=== PATIENT | female | born 1990 | race Caucasian/White ===

== ENCOUNTER 2021-10-01 05:05 | Inpatient (IN) | payer OTHER, SELFPAY ==
[2021-10-01] VITALS (132 sets, daily range): BP systolic 86–152; BP diastolic 45–118; PULSE 56–228; RESP 18; TEMP 36.6–37.4; O2SAT 80–100
--- NOTE | 2021-10-01 05:28 | LDADM ---
This patient, Evita Fleming, was admitted to Labor/Delivery/Recovery 103 on 10/01/21 at 05:05. Plans for labor, pain management and were discussed with patient. Patient/family oriented to hospital policies and general routines including ID bracelet, bed and alarms, visiting hours, pain management, procedures, bathroom and other care routines, personal items, smoking policy, room service/diet and guest tray routines, security routines, and visiting hours. Patient/Family are encouraged to report perceived risks to care and to ask questions if they do not understand what they are told or what they should do. See OBIX for further documentation.
[2021-10-01 05:47] LABS: Basophils Percent Auto 0.3 % (0.2-1.2); Eosinophils Absolute Auto 0.1 K/mm3 (0-0.3); Eosinophils Percent Auto 1.3 % (0-4.4); Hematocrit 38.3 % (37.0-47.0); Hemoglobin 12.9 g/dL (12.0-15.0); Immature Granulocyte Absolute 0.05 K/mm3 (0.00-0.031); Immature Granulocyte Percent A 0.5 % (0-0.5); Lymphocytes Absolute Auto 2.78 K/mm3 (0.9-3.2); Lymphocytes Percent Auto 25.4 % (18.3-44.2); Mean Corpuscular HGB Conc 33.7 g/dl (32-36); Mean Corpuscular Hemoglobin 32.2 pg (26-34); Mean Corpuscular Volume 95.5 fl (80-100); Mean Platelet Volume 10.6 fl (7.4-10.4); Monocytes Absolute Auto 0.8 K/mm3 (0.1-0.6); Monocytes Percent Auto 7.2 % (2.6-8.5); Neutrophils Absolute Auto 7.2 K/mm3 (1.3-6.7); Neutrophils Percent Auto 65.3 % (45.5-73.1); Platelet Count Result 292 k/mm3 (150-375); Red Blood Count 4.01 M/mm3 (4.2-5.4); Red Cell Distribution Width 13.2 % (11.5-14.5)
[2021-10-01] MEDS: OXYTOCIN 30 UNITS/NS 500 ML 30 UNITS/500 ML BAG 6 UNITS IV CONT (06:09)
[2021-10-01] MEDS: LACTATED RINGERS 1,000 ML 125 ML IV CONT ×2 (06:10→10:59)
[2021-10-01 06:42] LABS: Rapid Plasma Reagin Non-Reactive (NonReactive)
--- NOTE | 2021-10-01 08:47 | WPDOBADMIT ---
Obstetrics - Admit Note Admission Note: record reviewed. Additions to the history and/or subsequent changes in the physical findings follow. 31 y/o G1 at 39 4/7 weeks here for induction of labor. GBS neg. AVSS NST reactive TOCO: contractions irregularly ABD soft, nontender, gravid, vertex EXT nontender Cervix 4/80/-2. AROM with clear fluid. Vertex. A: IUP at 39 4/7 weeks, desiring induction of labor. Favorable cervix. P: Oxytocin. Anticipate .
[2021-10-01] MEDS: PHENYLEPHRINE 1,000 MCG/10 ML SYRINGE 1000 MCG (11:10)
--- NOTE | 2021-10-01 12:08 | PM.OBPNLAB ---
Pain Control Date/time seen: 10/01/21 12:08 Comments: Comfortable with epidural. AVSS NST reactive TOCO: contractions irregularly Cervix 580/-1. IUPC placed. Continue labor.
[2021-10-01] MEDS: SODIUM CHLORIDE 0.9% IV 300 ML 600 ML I-UTERINE (12:35)
[2021-10-01] MEDS: ONDANSETRON INJ 4 MG/2 ML VIAL IV PUSH (14:50)
[2021-10-01] MEDS: OXYTOCIN 30 UNITS/NS 500 ML 30 UNITS/500 ML BAG 125 UNITS IV CONT (18:45)
--- NOTE | 2021-10-01 18:46 | P.PCNOB_ITS ---
OB - Delivery Note Procedure Delivery date: 10/01/21 Procedure: Induction of labor with Excisional biopsy of Left Vulvar skin tag Induction method: Per Pitocin Protocol Delivery augmentation: Rupture of Membranes Delivery monitor: External FHT, External Uterine and Internal Uterine Route of delivery: Laceration Description: Perineal - 2nd Degree Delivery repair: vicryl (3-0) Specimen: Yes (cord blood, left vulvar skin tag) Quantitative Blood Loss (ml): 370 Anesthesia type: Epidural Disposition: PACU Narrative: 31 y/o G1 at 39 4/7 weeks gestation who presented to the hospital for induction of labor. Oxytocin was administered intravenously. Amniotomy was performed with return of clear fluid. She received an epidural for pain control. Her labor progressed and her cervix dilated completely. She pushed with good effort and delivered the infant's head to the perineum, followed by the body. The nose and mouth were bulb suctioned. After a delay, the cord was clamped and cut. The infant was handed off the field. Cord blood was collected. The placenta delivered spontaneously and was grossly normal in appearance. The usual 3 vessel cord was noted. A second degree midline pe rineal laceration was sustained. This was reapproximated using 3 0 Vicryl in the usual layered fashion. Excellent hemostasis resulted as did excellent reapproximation of the normal anatomy. A left vulvar skin tag approximately 8 x 4 mm was sharply excised and passed off to be sent to pathology. The site was reapproximated with a single interrupted suture of the same material. Needle and instrument counts were correct. The patient was taken to recovery room in stable condition. The infant went to the nursery in stable condition. I was present and scrubbed for the entire delivery. [place] Baby Date of : 10/01/21 Time of : 18:25 Weeks of gestation at delivery: 39 gender: Male Weight (pounds): 7 Weight (ounces): 12 presentation: vertex position: Left Occiput Anterior Placenta delivery description: Spontaneous and Normal Configuration Cord Vessel Description: 3 Vessels and Delayed Cord Clamping score one minute: 6 score five minutes: 9
--- NOTE | 2021-10-01 18:49 | PM.OBDSVD ---
DS: Admitting Diagnosis Discharge Date 10/03/21 Admitting Diagnosis IUP at 39 4/7 weeks Favorable cervix DS: Discharge Diagnosis Discharge Diagnosis (1) (normal spontaneous vaginal delivery): Code(s): O80 - Encounter for full-term uncomplicated delivery Status: Acute OB - DS: Summary OB Procedures : None OB Procedures Intrapartum: Spontaneous Vag Delivery OB Procedures: : None DS: Data Data Completed and Pending Labs on day of discharge: Labs from last 24 hours 10/01/21 10/01/21 10/01/21 05:42 05:42 05:42 WBC 11.0 H RBC 4.01 L Hgb 12.9 Hct 38.3 MCV 95.5 MCH 32.2 MCHC 33.7 RDW 13.2 Plt Count 292 MPV 10.6 H Immature Gran % (Auto) 0.5 Neut % (Auto) 65.3 Lymph % (Auto) 25.4 [place] % (Auto) 7.2 Eos % (Auto) 1.3 Baso % (Auto) 0.3 Lymph # (Auto) 2.78 [place] # (Auto) 0.8 H Eos # (Auto) 0.1 Baso # (Auto) 0.0 Abs Immat Gran (auto) 0.05 H Absolute Neuts (auto) 7.2 H Absolute Nucleated RBC 0.0 Nucleated RBC % 0.0 RPR Non-reactive Blood Type O Positive Antibody Screen Negative Discharge Plan Discharge Attending physician on discharge: Diogenes Quiñones Discharging Clinician: Diogenes Quiñones Patient Disposition: Home, Self-Care Activity: pelvic rest Diet: regular Discharge Instructions: Call or return if temperature above 100.4? F, increased abdominal pain, increased vaginal bleeding or any new problems. Stand Alone Forms: General Discharge Information Follow-up/Referrals: Diogenes Quiñones MD [Physician] - 6 Weeks Discharge Medications: New ibuprofen 600 mg tablet 600 mg PO Q6H PRN (Reason: cramps) Qty: 30 RF: 0 Continued sertraline 50 mg Tablet 50 mg PO DAILY RF: 0 PNV cmb#95-ferrous fumarate-FA [] 28 mg iron- 800 mcg Tablet 1 tablet PO DAILY RF: 0 Date of admission: 10/01/21 05:05 Primary Care Provider: PHYSICIAN,PROGRAM DIRECTOR/TRAFFIC DIRECTOR Admitting Provider: Diogenes Quiñones Attending physician on admission: Diogenes Quiñones Condition: Stable
[2021-10-01] MEDS: IBUPROFEN 600 MG TABLET PO (20:07)
[2021-10-01] MEDS: BENZOCAINE 20% AER SPR (*SP) 56 GM CAN 1 SPRAY TOPICAL (20:08)
[2021-10-01] MEDS: WITCH HAZEL 40 PADS 1 PAD TOPICAL (20:08)
[2021-10-02 04:00] VITALS: BP 123/75; PULSE 76; RESP 18; TEMP 36.2; O2SAT 99
[2021-10-02 05:10] LABS: Hematocrit 31.6 % (37.0-47.0); Hemoglobin 10.7 g/dL (12.0-15.0)
[2021-10-02 07:10] VITALS: BP 130/81; PULSE 74; RESP 16; TEMP 36.1; O2SAT 100
--- NOTE | 2021-10-02 08:00 | PC.NURSE ---
PT introductions made and plan of care discussed per post , pain management, bottle feeding, daily care activities. PT and spouse both recipients of such instructions. PT received instructions per one to one discussion, mom baby care guide and demonstrations this shift. PT shows no barriers to learning at this time. PT verbalized understanding of such care.
[2021-10-02] MEDS: ACETAMINOPHEN 325 MG TABLET 650 MG PO ×3 (08:55→21:38)
[2021-10-02] MEDS: DOCUSATE SODIUM 100 MG CAPSULE PO ×2 (08:55→15:31)
[2021-10-02] MEDS: IBUPROFEN 600 MG TABLET PO ×3 (08:56→21:37)
[2021-10-02 09:00] VITALS: PULSE 74; RESP 16; O2SAT 100
[2021-10-02 11:15] VITALS: BP 123/73; PULSE 97; RESP 18; TEMP 37.1; O2SAT 98
--- NOTE | 2021-10-02 11:47 | PC.NURSE ---
On 10/02/21, the student, Tomasz Conti, provided care and completed [facility] documentation on this patient. I have reviewed the student's documentation and agree with the findings.
--- NOTE | 2021-10-02 14:26 | PM.OBPNVD ---
OB - PN: Subj Subjective Date/time seen: 10/02/21 14:26 Narrative: Pain OK. Would like circumcision for son. OB - PN: Obj Data Labs CBC & Chem 7: 10/02/21 04:21 Labs: Laboratory Results - last 24 hr 10/02/21 04:21 Hgb 10.7 L Hct 31.6 L OB - PN A/P Plan Comments: A: PPD#1, doing well. P: Routine care. Reviewed circ. Exam Psych: Other: AVSS ABD soft, nontender, fundus firm EXT nontender
[2021-10-02] MEDS: WITCH HAZEL 40 PADS 1 PAD TOPICAL (15:20)
[2021-10-02 16:45] VITALS: BP 126/72; PULSE 100; RESP 18; TEMP 36.6; O2SAT 100
[2021-10-02 20:03] VITALS: BP 129/78; PULSE 80; RESP 18; TEMP 36.6; O2SAT 99
[2021-10-02] MEDS: SERTRALINE HCL 50 MG TABLET PO (21:37)
[2021-10-03] MEDS: IBUPROFEN 600 MG TABLET PO (07:44)
[2021-10-03] MEDS: ACETAMINOPHEN 325 MG TABLET 650 MG PO (07:45)
[2021-10-03] MEDS: DOCUSATE SODIUM 100 MG CAPSULE PO (07:45)
[2021-10-03] MEDS: WITCH HAZEL 40 PADS 1 PAD TOPICAL (07:46)
[2021-10-03] MEDS: BENZOCAINE 20% AER SPR (*SP) 56 GM CAN 1 SPRAY TOPICAL (07:46)
[2021-10-03 08:00] VITALS: BP 111/73; PULSE 75; RESP 18; TEMP 37
--- NOTE | 2021-10-03 08:54 | PM.OBPNVD ---
OB - PN: Subj Subjective Date/time seen: 10/03/21 08:54 Narrative: Pain OK. Would like to go home. OB - PN: Obj Data Labs CBC & Chem 7: 10/02/21 04:21 OB - PN A/P Plan Comments: A: PPD#2, doing well. P: Home to f/u 6 weeks. Exam Psych: Other: AVSS ABD soft, nontender, fundus firm EXT nontender
--- NOTE | 2021-10-03 09:15 | PC.NURSE ---
Patient viewed the discharge video Mother & Baby Care, The First Two Weeks . Patient was given the opportunity and encouraged to ask questions. Patient verbalized understanding of information shared and has been given the mother/baby guide for home reference.
--- NOTE | 2021-10-03 09:15 | PC.NURSE ---
Self care and infant care discharge instructions given including follow up visit date and time. Mother verbalized understanding. No questions or concerns voiced. Very pleasant and cooperative. FOB at side.
[2021-10-04 11:41] VITALS: BP 138/77; PULSE 102; RESP 20; TEMP 37; O2SAT 100
== END 2021-10-03 10:18 | disposition home or self-care (01) | DRG 768 ==
LOC: ANHLDR 18:50 → ANHOB2 21:38
PROVIDERS: Admitting Provider Obstetrics & Gynecology; Visit Provider Obstetrics & Gynecology
DX: O99.72 Diseases of the skin and subcutaneous tissue complicating childbirth (principal); Z37.0 Single live birth; Z3A.40 40 weeks gestation of pregnancy; O36.8330 Maternal care for abnormalities of the fetal heart rate or rhythm, third trimester, not applicable or unspecified; O70.1 Second degree perineal laceration during delivery; N90.89 Other specified noninflammatory disorders of vulva and perineum
CPT/HCPCS: 36415; 85014; 85018; 85025; 86592; 86850; 86900; 86901; 88305; A9270; J2370; J2405; J2590; J2795; J7030; J7120

== ENCOUNTER 2023-12-04 20:36 | Inpatient (IN) | payer BC, SELFPAY ==
[2023-12-04 20:45] VITALS: BP 123/80; PULSE 101
[2023-12-04 21:00] VITALS: BP 125/75; PULSE 107
[2023-12-04] MEDS: LACTATED RINGERS 1,000 ML 125 ML IV CONT (21:27)
[2023-12-04] MEDS: AMPICILLIN 2 GM/NS 100 ML 2 GM/100 ML BAG IVPB (21:27)
[2023-12-04 21:34] LABS: Basophils Percent Auto 0.3 % (0.2-1.2); Eosinophils Absolute Auto 0.1 K/mm3 (0-0.3); Eosinophils Percent Auto 0.8 % (0-4.4); Hematocrit 37.4 % (37.0-47.0); Hemoglobin 12.8 g/dL (12.0-15.0); Immature Granulocyte Absolute 0.03 K/mm3 (0.00-0.031); Immature Granulocyte Percent A 0.2 % (0-0.5); Lymphocytes Absolute Auto 3.95 K/mm3 (0.9-3.2); Lymphocytes Percent Auto 32.9 % (18.3-44.2); Mean Corpuscular HGB Conc 34.2 g/dl (32-36); Mean Corpuscular Volume 93.5 fl (80-100); Mean Platelet Volume 9.4 fl (7.4-10.4); Monocytes Percent Auto 8.7 % (2.6-8.5); Neutrophils Absolute Auto 6.9 K/mm3 (1.3-6.7); Neutrophils Percent Auto 57.1 % (45.5-73.1); Platelet Count Result 321 k/mm3 (150-375); Red Cell Distribution Width 13.3 % (11.5-14.5)
[2023-12-04 21:44] LABS: Alanine Aminotransferase 17 U/L (6-35); Albumin Level 3.6 g/dL (3.5-5.1); Alkaline Phosphatase 133 U/L (38-126); Anion Gap 5 mmol/L (4-12); Aspartate Amino Transferase 21 U/L (14-36); Bilirubin,Total 0.6 mg/dL (0.2-1.3); Blood Urea Nitrogen 16 mg/dL (7-17); Calcium 9.2 mg/dL (8.4-10.2); Carbon Dioxide 21 mmol/L (22-30); Chloride 108 mmol/L (98-107); Estimated Glomerular Filt Rate > 60; Glucose 119 mg/dL (65-110); Potassium 3.8 mmol/L (3.4-5.0); Sodium 134 mmol/L (137-145); Uric Acid 4.8 mg/dL (2.5-7.5)
--- NOTE | 2023-12-04 21:52 | LDADM ---
This patient, Evita Fleming, was admitted to Labor/Delivery/Recovery 105 on 12/04/23 at 20:36. Plans for labor, pain management and were discussed with patient. Patient/family oriented to hospital policies and general routines including ID bracelet, bed and alarms, visiting hours, pain management, procedures, bathroom and other care routines, personal items, smoking policy, room service/diet and guest tray routines, infant security routines, and visiting hours. Patient/Family are encouraged to report perceived risks to care and to ask questions if they do not understand what they are told or what they should do. See OBIX for further documentation.
[2023-12-04 22:05] VITALS: BMI 36.0
[2023-12-04 22:24] LABS: HIV 1/2 Ab P24 Ag Result Negative (Negative)
[2023-12-05] VITALS (176 sets, daily range): BP systolic 70–152; BP diastolic 29–111; PULSE 53–165; RESP 16–18; TEMP 36.3–37.4; O2SAT 95–100
--- NOTE | 2023-12-05 00:16 | WPDANESEPP ---
Anes - Eval Pre Procedure Procedure: labor epidural Date/Time: 12/05/23 00:16 Surgeon: al Preop Diagnosis: pain during labor Pre Op Diagnosis: leaking fluid Patient Data Age: 33 Gender: F Height: 1.63 m Weight: 95.3 kg Last Vital Signs Pulse 107 H 12/04/23 21:00 BP 125/75 12/04/23 21:00 Allergies Allergy/AdvReac Type Severity Reaction Status Date / Time No Known Allergies Allergy Verified 11/13/23 13:30 Home Medications Medication Instructions Recorded Confirmed Type vit no.95-ferrous 1 tablet PO DAILY 08/31/21 11/13/23 History fumarate 28 mg-folic acid 800 mcg tablet () sertraline 50 mg tablet 50 mg PO DAILY 08/31/21 11/13/23 History Laboratory Tests 12/04/23 12/04/23 21:27 21:27 WBC 12.0 H K/mm3 (4.5-10.0) RBC 4.00 L M/mm3 (4.2-5.4) Hgb 12.8 g/dL (12.0-15.0) Hct 37.4 % (37.0-47.0) MCV 93.5 fl (80-100) MCH 32.0 pg (26-34) MCHC 34.2 g/dl (32-36) RDW 13.3 % (11.5-14.5) Plt Count 321 k/mm3 (150-375) MPV 9.4 fl (7.4-10.4) Immature Gran % (Auto) 0.2 % (0-0.5) Neut % (Auto) 57.1 % (45.5-73.1) Lymph % (Auto) 32.9 % (18.3-44.2) [place] % (Auto) 8.7 H % (2.6-8.5) Eos % (Auto) 0.8 % (0-4.4) Baso % (Auto) 0.3 % (0.2-1.2) Lymph # (Auto) 3.95 H K/mm3 (0.9-3.2) [place] # (Auto) 1.0 H K/mm3 (0.1-0.6) Eos # (Auto) 0.1 K/mm3 (0-0.3) Baso # (Auto) 0.0 K/mm3 (0.0-0.1) Abs Immat Gran (auto) 0.03 K/mm3 (0.00-0.031) Absolute Neuts (auto) 6.9 H K/mm3 (1.3-6.7) Absolute Nucleated RBC 0.000 K/mm3 (0.0-0.012) Nucleated RBC % 0.0 % (0.0-0.2) Sodium 134 L mmol/L (137-145) Potassium 3.8 mmol/L (3.4-5.0) Chloride 108 H mmol/L (98-107) Carbon Dioxide 21 L mmol/L (22-30) Anion Gap 5 mmol/L (4-12) BUN 16 mg/dL (7-17) Creatinine 0.70 mg/dL (0.7-1.0) Estim Creat Clear Calc Not Reportable Estimated GFR > 60 (59 - ) Glucose 119 H mg/dL (65-110) Uric Acid Cancelled 4.8 mg/dL (2.5-7.5) Calcium 9.2 mg/dL (8.4-10.2) Total Bilirubin 0.6 mg/dL (0.2-1.3) AST 21 U/L (14-36) ALT 17 U/L (6-35) Alkaline Phosphatase 133 H U/L (38-126) Total Protein 7.0 g/dL (6.3-8.2) Albumin 3.6 g/dL (3.5-5.1) RPR Pending HIV 1&2 Ab/P24 Ag 4thGn Negative (Negative) Blood Type O Positive Antibody Screen Negative Patient hx anesthesia problems: none Family hx anesthesia problems: none Results Review: All pre-operative results and documents have been reviewed as part of the pre-operative evaluation. [facility] Past Medical History Medical History (Updated 12/05/23 @ 00:17 by María Elena Fall CRNA) Anxiety Depression IUP (intrauterine ), incidental Migraines, neuralgic Family History Family History Other No pertinent family history Social History Social History Smoking status: Never smoker Second hand tobacco smoke exposure: No Substance use: never Do You Feel Safe in your Home?: Yes Lack of Transportation: No Lack of Food: Never True Current Housing: I Have Housing Concerned About Future Housing: No Difficulty Paying Gas/Electric Bills: No Difficulty Paying for Meds: No Currently Unemployed: No Education: Master's Degree or Higher Difficulty w/ Childcare or Family Care: No Spiritual care concerns: No Exam Day of Procedure 12/05/23 00:16
[2023-12-05] MEDS: AMPICILLIN 1 GM/NS 50 ML 1 GM/50 ML BAG IVPB ×2 (01:45→05:49)
[2023-12-05] MEDS: ONDANSETRON INJ 4 MG/2 ML VIAL IV PUSH (01:45)
[2023-12-05] MEDS: PHENYLEPHRINE 1,000 MCG/10 ML SYRINGE 100 MCG IV PUSH ×3 (04:04→05:18)
[2023-12-05] MEDS: OXYTOCIN 30 UNITS/NS 500 ML 30 UNITS/500 ML BAG IV CONT (05:00)
[2023-12-05] MEDS: ePHEDrine sulfate INJ 50 MG/ML AMPUL IV PUSH ×3 (05:52→06:19)
--- NOTE | 2023-12-05 07:08 | PM.IMHP ---
H&P: HPI History of Present Illness Date/Time: 12/05/23 07:08 Chief Complaint: Term Narrative: 33-year-old 2 para 1 whose EDC is 12/11/2023 presents at 39 weeks gestation with ruptured membranes. She was watched through the night she is positive for group B strep 3 doses of ampicillin thus far. Epidural was working and she is completely dilated expected to deliver [facility] Past Medical History Medical History Anxiety Depression IUP (intrauterine ), incidental Migraines, neuralgic Family History Family History Other No pertinent family history Social History Social History Smoking status: Never smoker Second hand tobacco smoke exposure: No Substance use: never Do You Feel Safe in your Home?: Yes Lack of Transportation: No Lack of Food: Never True Current Housing: I Have Housing Concerned About Future Housing: No Difficulty Paying Gas/Electric Bills: No Difficulty Paying for Meds: No Currently Unemployed: No Education: Master's Degree or Higher Difficulty w/ Childcare or Family Care: No Spiritual care concerns: No Meds Home Medications and Allergies Home Medications Medication Instructions Recorded Confirmed Type vit no.95-ferrous 1 tablet PO DAILY 08/31/21 11/13/23 History fumarate 28 mg-folic acid 800 mcg tablet () sertraline 50 mg tablet 50 mg PO DAILY 08/31/21 11/13/23 History Allergies Allergy/AdvReac Type Severity Reaction Status Date / Time No Known Allergies Allergy Verified 11/13/23 13:30 Vital Signs Vital Signs - 24 hr 12/04/23 20:45 12/04/23 21:00 12/05/23 00:54 Temperature Pulse Rate 101 H 107 H 58 L Blood Pressure 123/80 125/75 137/82 Pulse Oximetry 12/05/23 01:02 12/05/23 01:07 12/05/23 01:08 Temperature Pulse Rate 66 Blood Pressure 125/71 Pulse Oximetry 98 100 12/05/23 01:10 12/05/23 01:12 12/05/23 01:13 Temperature Pulse Rate 75 73 Blood Pressure 117/89 132/81 Pulse Oximetry 99 12/05/23 01:15 12/05/23 01:17 12/05/23 01:21 Temperature Pulse Rate 71 165 H 65 Blood Pressure 117/62 128/111 H 121/54 L Pulse Oximetry 99 12/05/23 01:22 12/05/23 01:23 12/05/23 01:25 Temperature Pulse Rate 56 L 66 Blood Pressure 112/65 106/49 L Pulse Oximetry 99 12/05/23 01:27 12/05/23 01:28 12/05/23 01:30 Temperature Pulse Rate 62 61 Blood Pressure 96/58 L 100/53 L Pulse Oximetry 99 12/05/23 01:32 12/05/23 01:33 12/05/23 01:35 Temperature Pulse Rate 58 L 60 Blood Pressure 93/47 L 107/58 L Pulse Oximetry 97 12/05/23 01:37 12/05/23 01:38 12/05/23 01:40 Temperature Pulse Rate 53 L 58 L Blood Pressure 95/49 L 95/51 L Pulse Oximetry 98 12/05/23 01:42 12/05/23 01:45 12/05/23 01:47 Temperature Pulse Rate 57 L 74 Blood Pressure 106/57 L 117/43 L Pulse Oximetry 99 100 12/05/23 01:48 12/05/23 01:50 12/05/23 01:52 Temperature Pulse Rate 91 67 Blood Pressure 110/59 L 102/58 L Pulse Oximetry 99 12/05/23 01:53 12/05/23 01:55 12/05/23 01:57 Temperature Pulse Rate 72 58 L Blood Pressure 107/51 L 85/50 L Pulse Oximetry 97 12/05/23 01:58 12/05/23 02:00 12/05/23 02:02 Temperature 98.7 F Pulse Rate 55 L 59 L Blood Pressure 109/58 L 108/56 L Pulse Oximetry 98 12/05/23 02:03 12/05/23 02:05 12/05/23 02:07 Temperature Pulse Rate 60 60 57 L Blood Pressure 98/57 L 99/52 L 112/66 Pulse Oximetry 99 12/05/23 02:10 12/05/23 02:12 12/05/23 02:13 Temperature Pulse Rate 59 L 56 L Blood Pressure 104/54 L 111/60 Pulse Oximetry 95 12/05/23 02:15 12/05/23 02:17 12/05/23 02:18 Temperature Pulse Rate 65 60 Blood Pressure 90/60 L 115/66 Pulse Oximetry 100 12/05/23 02:20 12/04
--- NOTE | 2023-12-05 07:33 | PM.OBPRVD ---
OB - Vaginal Delivery Note Procedure Delivery date: 12/05/23 Events: Positive Group B Strep (GBS) Induction method: None Delivery monitor: External FHT and External Uterine Route of delivery: Episiotomy description: None Laceration Description: Perineal - 1st Degree Delivery repair: vicryl Specimen: No Quantitative Blood Loss (ml): 61 Anesthesia type: Epidural Disposition: Floor Complications: No immediate complications Baby Date of : 12/05/23 Time of : 07:23 Weeks of gestation at delivery: 39 Infant gender: Male presentation: vertex position: Right Occiput Anterior Placenta delivery description: Spontaneous Cord Vessel Description: 3 Vessels Narrative: amp x 3
--- NOTE | 2023-12-05 07:35 | P.DS_ITS ---
DS: Admitting Diagnosis Discharge Date 12/06/2023 Admitting Diagnosis term /positive group B strep DS: Discharge Diagnosis Discharge Diagnosis (1) IUP (intrauterine ), incidental: Code(s): Z33.1 - state, incidental Status: Acute (2) Positive testing for group B Streptococcus: Code(s): B95.1 - Streptococcus, group B, as the cause of diseases classified elsewhere Status: Acute DS: Summary Hospital Course Reason for hospitalization: Patient was admitted at 38 weeks gestation in active labor and underwent spontaneous vaginal delivery a group B strep prophylaxis Hospital Course: patient's hospital course unremarkable. She remained afebrile. She was up, voiding without difficulty, bottle feeding, eating regular diet, ambulating, generally without complaints Time Spent with Patient Time attestation: Total time spent providing and/or coordinating discharge services: DS: Data Data Completed and Pending Labs on day of discharge: Labs from last 24 hours 12/04/23 12/04/23 21:27 21:27 WBC 12.0 H RBC 4.00 L Hgb 12.8 Hct 37.4 MCV 93.5 MCH 32.0 MCHC 34.2 RDW 13.3 Plt Count 321 MPV 9.4 Immature Gran % (Auto) 0.2 Neut % (Auto) 57.1 Lymph % (Auto) 32.9 [place] % (Auto) 8.7 H Eos % (Auto) 0.8 Baso % (Auto) 0.3 Lymph # (Auto) 3.95 H [place] # (Auto) 1.0 H Eos # (Auto) 0.1 Baso # (Auto) 0.0 Abs Immat Gran (auto) 0.03 Absolute Neuts (auto) 6.9 H Absolute Nucleated RBC 0.000 Nucleated RBC % 0.0 Sodium 134 L Potassium 3.8 Chloride 108 H Carbon Dioxide 21 L Anion Gap 5 BUN 16 Creatinine 0.70 Estim Creat Clear Calc Not Reportable Estimated GFR > 60 Glucose 119 H Uric Acid 4.8 Cancelled Calcium 9.2 Total Bilirubin 0.6 AST 21 ALT 17 Alkaline Phosphatase 133 H Total Protein 7.0 Albumin 3.6 RPR Pending HIV 1&2 Ab/P24 Ag 4thGn Negative Blood Type O Positive Antibody Screen Negative Discharge Plan Discharge Attending physician on discharge: Raymond Cristina Discharging Clinician: Diogenes Quiñones Patient Disposition: Home, Self-Care Activity: may shower, no straining and pelvic rest Diet: heart healthy Wound Care Instructions: follow printed instructions Patient Instructions: Antibiotic Form Stand Alone Forms: General Discharge Information Follow-up/Referrals: Diogenes Quiñones MD [Physician] - Discharge Medications: Continued sertraline 50 mg Tablet 50 mg PO DAILY PNV cmb#95-ferrous fumarate-FA [] 28 mg iron- 800 mcg Tablet 1 tablet PO DAILY Date of admission: 12/04/23 20:36 Primary Care Provider: PHYSICIAN,BILINGUAL PATIENT SUPPORT CASEWORKER Admitting Provider: Diogenes Quiñones Attending physician on admission: Diogenes Quiñones Condition: Stable
[2023-12-05] MEDS: OXYTOCIN 30 UNITS/NS 500 ML 30 UNITS/500 ML BAG 125 UNITS IV CONT (07:49)
[2023-12-05] MEDS: WITCH HAZEL 40 PADS 1 PAD TOPICAL (09:22)
[2023-12-05] MEDS: BENZOCAINE 20% AER SPR (*SP) 56 GM CAN 1 SPRAY TOPICAL (09:22)
[2023-12-05] MEDS: ACETAMINOPHEN 325 MG TABLET 650 MG PO ×3 (09:38→22:33)
--- NOTE | 2023-12-05 09:50 | OBPPTRN ---
Patient transferred to post room #282 via wheelchair. Support person present. Oriented to unit, room, information board, rooming in, admission packet and security measures. Patient verbalizes understanding.
[2023-12-05] MEDS: DOCUSATE SODIUM 100 MG CAPSULE PO (16:12)
[2023-12-05] MEDS: IBUPROFEN 600 MG TABLET PO ×2 (16:12→22:33)
[2023-12-06 04:16] LABS: Hemoglobin 11.4 g/dL (12.0-15.0)
[2023-12-06] MEDS: ACETAMINOPHEN 325 MG TABLET 650 MG PO ×2 (06:57→13:06)
[2023-12-06] MEDS: DOCUSATE SODIUM 100 MG CAPSULE PO (06:57)
[2023-12-06] MEDS: IBUPROFEN 600 MG TABLET PO ×2 (06:57→13:07)
[2023-12-06] MEDS: MULTIVIT/MIN/PREN/FOL AC/IRON TABLET 1 TAB PO (06:57)
[2023-12-06 07:05] VITALS: BP 115/69; PULSE 62; RESP 16; TEMP 36.4; O2SAT 99
--- NOTE | 2023-12-06 07:38 | PM.OBPNVD ---
OB - PN: Subj Subjective Date/time seen: 12/06/23 07:38 Patient comments: no complaints and pain well controlled baby status: doing well and nursing well OB - PN: Obj Data Labs 12/06/23 04:03 12/04/23 21:27 Labs: Laboratory Results - last 24 hr 12/06/23 04:03 Hgb 11.4 L Hct 35.0 L OB - PN A/P Plan day: 1 Plan: routine care, discharge home and follow up 6 weeks Time Spent With Patient Time: Total time spent is greater than 50% in coordination of care (as documented) at patient's floor/unit and/or counseling patient: Time with patient: less than 15 minutes Exam Const: General: cooperative, healthy appearing and comfortable Nutritional Appearance: average body habitus Orientation/consciousness: oriented to person, oriented to place and oriented to time Resp: Effort & Inspection: normal respiratory effort Cardio: Rate: regular rate Rhythm: regular rhythm Heart sounds: S1 normal heart sound present and S2 normal heart sound present GI: Inspection: normal to inspection
--- NOTE | 2023-12-06 10:28 | WPDANLDPN2 ---
Anes-Prog Note L&D Date/Time: 12/06/23 10:28 Comfortable throughout: labor and delivery Neuraxial method: epidural Epidural/Spinal procedure site: clean & non-tender Neuro status: Neuro function grossly intact. Cardiovascular status: normal Respiratory status: normal Airway patency: baseline Mental status: baseline Post-Op hydration status: normal Vital Signs: Last Vital Signs Temp 97.3 F L 12/05/23 23:10 Pulse 62 12/05/23 23:10 Resp 16 12/05/23 23:10 BP 95/60 L 12/05/23 23:10 Pulse Ox 100 12/05/23 23:10 O2 Del Method Room Air 12/05/23 12:56 Pain score (VAS): 0 I/O: Intake & Output 12/05/23 12/06/23 12/06/23 23:59 07:59 15:59 Intake Total 240 Balance 240 Patient feedback: Patient satisfied with anesthetic care.
[2023-12-07 08:20] LABS: Rapid Plasma Reagin Non-Reactive (NonReactive)
[2023-12-09 10:15] VITALS: BP 117/82; PULSE 94; RESP 18; TEMP 37.1; O2SAT 100
== END 2023-12-06 17:15 | disposition home or self-care (01) | DRG 807 ==
LOC: ANHLDR 12-05 07:37 → ANHOB2 12-06 13:59 → ANHLDR 12-09 08:38 → ANHOB2 12-09 08:38
PROVIDERS: Admitting Provider Obstetrics & Gynecology; Visit Provider Obstetrics & Gynecology
DX: O99.824 Streptococcus B carrier state complicating childbirth (principal); Z37.0 Single live birth; Z3A.39 39 weeks gestation of pregnancy; O70.0 First degree perineal laceration during delivery
CPT/HCPCS: 36415; 80053; 84112; 84550; 85014; 85018; 85025; 86592; 86703; 86850; 86900; 86901; A9270; G0432; J0290; J2371; J2405; J2590; J2795; J7120